=== PATIENT | female | born 1945 | race Caucasian/White ===

== ENCOUNTER → 2022-02-06 | Day surgery (SDC) | payer MEDICARE, BC ==
[2022-01-30 15:19] LABS: BASOPHILS % (AUTO) 0.5 % (0-1); EOSINOPHILS # (AUTO) 0.1 X10'3 (0-0.9); EOSINOPHILS % (AUTO) 1.3 % (0-6); LYMPHOCYTES # (AUTO) 1.3 X10'3 (1.1-4.8); LYMPHOCYTES % (AUTO) 17.5 % (21-51); MEAN CORPUSCULAR HEMOGLOBIN 32.4 PG (27.0-31.0); MEAN CORPUSCULAR HGB CONC 34.1 g/dL (33.0-36.5); MEAN PLATELET VOLUME 8.7 FL (7.4-10.4); MONOCYTES # (AUTO) 0.6 X10'3 (0-0.9); MONOCYTES % (AUTO) 8.6 % (2-12); NEUTROPHILS # (AUTO) 5.4 X10'3 (1.8-7.7); NEUTROPHILS % (AUTO) 72.1 % (42-75); PRE OP HEMATOCRIT 35.9 % (35.0-45.0); PRE OP HEMOGLOBIN 12.2 g/dL (12.0-16.0); PRE OP PLATELET COUNT 278 X10'3 (140-440); RED BLOOD COUNT 3.78 X10'6 (4.20-5.60); RED CELL DISTRIBUTION WIDTH 12.7 % (11.5-14.5)
[2022-01-30 15:32] LABS: ALBUMIN 3.5 G/DL (3.4-5.0); ALBUMIN/GLOBULIN RATIO 0.9 (1.1-1.5); ALKALINE PHOSPHATASE 108 IU/L (46-116); BLOOD UREA NITROGEN 13 MG/DL (7-18); BUN/CREATININE RATIO 15.5 (6.6-38.0); CHLORIDE 104 MMOL/L (99-107); CREATININE 0.84 MG/DL (0.40-0.90); PRE OP ALT 15 U/L (30-65); PRE OP ANION GAP 11 (8-16); PRE OP AST 12 U/L (10-37); PRE OP BILIRUB, TOTAL 0.5 MG/DL (0.0-1.0); PRE OP GLUCOSE 95 MG/DL (70-104); PRE OP SODIUM 142 MMOL/L (135-145); TOTAL CARBON DIOXIDE 27.4 MMOL/L (24-32); TOTAL PROTEIN 7.4 G/DL (6.4-8.2); eGFR 66 ML/MIN
[2022-02-06] VITALS (14 sets, daily range): BP systolic 116–171; BP diastolic 70–97
[~2022-02-06] VITALS: Ht 170.2 cm; Wt 71.4 kg
[~2022-02-06] MED LIST: BUPIVAcaine 0.5% inj/PF 30 ML ONE; HYDROcodone/acetaminophen 10/325mg tab PO ONE; HYDROmorphone/PF 0.2 MG/ML SYRINGE IV PRN; IBUP-1986 PO; IBUP-24 PO; LIDOcaine 2% (20mg/ml) 5ml vial ONE; ROPIVAcaine 0.5% (5mg/ml) 30ml vial ONE; VITAMIN C; VITAMIN D; ceFAZolin inj. 2,000 MG in dextrose 5%-water 100 ML IV ONE; famotidine 20mg tablet PO ONE; fentaNYL/PF 50MCG/1 ML 2ML syringe ONE; hydrALAZINE 20mg/ml inj. IV ONE; ketamine 50mg/5ml syringe ONE; ketorolac tromethamine 15mg/ml inj. IV ONE; morphine 2 MG/ML inj. syringe IV PRN; morphine 4 MG/ML inj SYRINge ONE; ondansetron/PF 4mg/2ml inj IV PRN; propofol inj 20 ML IV ONE; ringers solution, lacted 1,000 ML IV SCH; sevoflurane 250ml liquid IH ONE; vancomycin 1,000mg inj ONE
--- NOTE | 2022-02-06 11:10 | NUR ---
Received from OR via , accompanied by Anesthesiologist DR ALBRIGHT and report given by Anesthesiolgist. AWAKENS TO VOICE. VITALS STABLE. DRESSING/CAST DI. SONNY PAIN. LUE IN A SIMPPLE SLING.
--- NOTE | 2022-02-06 13:40 | NUR ---
AWAKE AND ORIENTED. VITALS STABLE. DRESSING DI. STATES PAIN IMPROVING. HOME WITH HER SPOUSE AT THIS TIME.
== END | disposition home or self-care (01) ==
LOC: PAS 07:14
PROVIDERS: ATTEND Orthopaedic Surgery Hand Surgery
DX: S52.032A Displaced fracture of olecranon process with intraarticular extension of left ulna, initial encounter for closed fracture (principal); Z20.822 Contact with and (suspected) exposure to COVID-19; Z79.899 Other long term (current) drug therapy; Z88.1 Allergy status to other antibiotic agents; Z72.89 Other problems related to lifestyle; Z98.890 Other specified postprocedural states; Z88.8 Allergy status to other drugs, medicaments and biological substances; W18.09XA Striking against other object with subsequent fall, initial encounter; Y93.89 Activity, other specified; Y92.59 Other trade areas as the place of occurrence of the external cause; Y99.8 Other external cause status
CPT/HCPCS: 24685; 36415; 80053; 82948; 85025; 93005; C1713; J0690; J1885; J2270; J2704; J2795; J3010; J3370; J3490; J7030; J7060; J7120; S0020; U0003; U0005; Z7506; Z7508; Z7512; A4215; A4565; A4618; A6449; A7000; J0360